=== PATIENT | female | born 1975 | race Caucasian/White ===

== ENCOUNTER 2022-06-13 13:49 | Emergency (ER) | payer OTHER, SELFPAY | END 2022-06-13 15:42 | disposition left against medical advice (07) | PROVIDERS: Emergency Provider Emergency Medicine | DX: H53.9 Unspecified visual disturbance (principal) ==

== ENCOUNTER 2022-07-04 20:31 | Emergency (ER) | payer OTHER, SELFPAY ==
[2022-07-04 20:38] VITALS: BP 166/112; PULSE 120; RESP 20; TEMP 36.5; O2SAT 96; BMI 29.7
--- NOTE | 2022-07-04 21:04 | ED_ITS ---
HPI - Psych General Chief Complaint: ETOH/Substance Use Stated Complaint: crisis Time Seen by Provider: 07/04/22 20:52 Source: patient, EMS and police Mode of arrival: EMS Limitations: other ( intoxicated) History of Present Illness HPI Narrative: patient comes to the ED via ambulance on a Section 12 that was started by police department. According to EMS and PD, patient sent at text message to her cousin making suicidal statements. Patient's cousin stated that patient wants to overdose on her prescription of valsartan. Patient is intoxicated, grieving the of her father who last week. Patient is unable to give much history, patient is intoxicated, a bit combative, wanting to leave and not give any further history. Related Data Home Medications Medication Instructions Recorded Confirmed sertraline 50 mg tablet 1 tab PO DAILY 07/04/22 07/04/22 valsartan 80 mg tablet 1 tab PO DAILY 07/04/22 07/04/22 Allergies Allergy/AdvReac Type Severity Reaction Status Date / Time amoxicillin AdvReac Hives Verified 07/04/22 20:38 Review of Systems Review of Systems: Yes Unobtainable due to mental condition (intoxicated ) REPLACED BY [facility] Past Medical History Medical History (Updated 07/04/22 @ 21:14 by Kayley Nelson MD) Alcohol abuse Depression Hypertension Social History Social History Advance Directives: No Advance Directives Information Provided: No Physical Exam Vital Signs: Vital Signs: Last Vital Signs Temp 97.7 F 07/04/22 20:38 Pulse 108 H 07/04/22 22:40 Resp 16 07/04/22 23:10 BP 102/55 L 07/04/22 22:40 Pulse Ox 92 07/04/22 22:40 O2 Del Method 07/04/22 22:40 BMI result Body Mass Index 29.7 Const: Other: Appearance: Alert. Intoxicated, not answering questions straight Eyes: Pupils equal, round and reactive to light. ENT: Pharynx normal. Neck: Normal inspection. Neck supple. No lymph nodes noted. No crepitus CVS: Normal heart rate and rhythm. Pulses normal. Normal S1 and S2 Respiratory: No respiratory distress. Breath sounds normal. No Wheezing. No rales Abdomen: Soft and nontender. No rigidity. No distention. Skin: Skin warm and dry. Normal skin color. Normal skin turgor. Extremities: No lower extremity edema. No Lacerations. No Rash Neuro: Oriented X 3. No motor deficit. No sensory deficit. Moving all extremities. No slurred speech. CN 2 through 12 grossly intact Psych: Anxious, a bit combative, redirectable so far Course Course Course Narrative: Patient's is on a Section 12 that was started by police department Patient is intoxicated. All of the labs are pending. [facility] consult pending. Physician observation started at 21:00 21:58 I was informed by the patient's nurse that patient is being combative, trying to fight other patients in the Behavioral Health pod. Patient already received p.o. Benadryl and p.o. Ativan. Patient had to be given 20 mg of IM Geodon and 5 of Haldol. Patient is in physical restraints. 06:50, patient slept the whole night. 5 minutes after the IM medication was given to the patient, the physical restraints were removed. Patient remains on a Section 12, behavioral health network consult pending. MDM - Psych Lab Data Labs: Lab Results 07/04/22 07/04/22 07/04/22 Range/Units 20:51 21:14 21:14 Urine Color Yellow Urine Appearance Clear Urine pH 6.0 (5.0-9.0) Ur Specific [place] 1.010 (1.005-1.025) Urine Protein 30 (1+) H (Neg-Trace) mg/dL Urine Glucose (UA) Negative (Negative) mg/dL Urine Ketones Negative (Negative) mg/dL Urine Blood Small (1+) H (Negative) Urine Nitrite Negative (Negative) Ur Leukocyte Esterase Negative (Negative) Urine RBC 0-2 (0-2) /HPF Urine WBC 0-5 (0-5) /HPF Ur Squamous Epith Cells 0-2 (0-2) /HPF Urine Bacteria None Seen (None Seen) Hyaline Casts 3-5 (0-2) /LPF Urine Opiates Screen Not Detected (Not Detect) Urine Fentanyl Screen Not Detected (Not Detect) Ur Barbiturates Screen Not Detected (Not Detect) Ur Phencyclidine Scrn Not Detected (Not Detect) Ur Amphetamines Screen Not Detected (Not Detect) U Benzodiazepines Scrn Not Detected (Not Detect) Urine Cocaine Screen Not Detected (Not Detect) U Marijuana (THC) Screen Not Detected (Not Detect) COVID-19 (MAIKOL) Negative (Negative) COVID-19 Clin Com See Note Discharge Plan Discharge Clinical Impression: Alcoholic intoxication, Suicide ideation Patient Disposition: Still a Patient Prescriptions: No Action valsartan 80 mg tablet 1 tab PO DAILY sertraline 50 mg tablet 1 tab PO DAILY
[2022-07-04] MEDS: Nicotine Polacrilex 2 MG GUM BUCCAL (21:10)
[2022-07-04 21:11] LABS: COVID-19 Test Negative (Negative)
[2022-07-04 21:24] LABS: Appearance Urine Clear; Color Urine Yellow; Glucose Urine UA Negative (Negative); Leukocyte Esterase Urine Negative (Negative); Nitrite Urine Negative (Negative); Urine Blood Small (1+) (Negative); Urine Ketones Negative (Negative); Urine Protein 30 (1+) mg/dL (Neg-Trace)
[2022-07-04] MEDS: LORazepam 1 MG TABLET 2 MG PO (21:24)
[2022-07-04] MEDS: diphenhydrAMINE HCL 25 MG TABLET 50 MG PO (21:24)
[2022-07-04 21:34] LABS: Bacteria Urine None Seen (None Seen); RBC Urine 0-2 /HPF (0-2); Squamous Epithelial Cell Urine 0-2 /HPF (0-2); WBC Urine 0-5 /HPF (0-5)
[2022-07-04 21:36] LABS: Amphetamine Screen Urine Not Detected (Not Detect); Barbiturates, Urine Not Detected (Not Detect); Benzodiazepines Screen Urine Not Detected (Not Detect); Cannabinoid Screen Urine Not Detected (Not Detect); Cocaine Screen Urine Not Detected (Not Detect); Fentanyl, urine Not Detected (Not Detect); Opiate Screen Urine Not Detected (Not Detect); Phencyclidine Screen Urine Not Detected (Not Detect)
[2022-07-04 22:10] VITALS: RESP 18
[2022-07-04] MEDS: Ziprasidone Mesylate 20 MG VIAL IM (22:10)
[2022-07-04] MEDS: Haloperidol Lactate 5 MG/ML VIAL IM (22:10)
[2022-07-04 22:25] VITALS: RESP 17
[2022-07-04 22:40] VITALS: BP 102/55; PULSE 108; RESP 18; O2SAT 92
[2022-07-04 22:55] VITALS: RESP 16
--- NOTE | 2022-07-04 23:02 | PC.NURSE ---
Patient extremely agitated/constantly demanding discharge/unable redirect/became loud and disruptive when asked to calm patien combative/provider notified/saw the patient/ordered both chemical and physical restraint, patient received Geodon 20 mg IM and Haldol 5 mg Im at 2209 with positive effect, physical restraint discontinued at 2254, 1:1 discontinued @ 2309, patient currently in bed appears sleeping, will continue to monitor
[2022-07-04 23:10] VITALS: RESP 16
--- NOTE | 2022-07-05 10:26 | PC.NURSE ---
patient calm and cooperative this am. eval by care team awaiting dispo.
--- NOTE | 2022-07-05 10:31 | MHC.CARE ---
CARE team met with pt to follow-up after she presented to the ED making suicidal statements while intoxicated. Pt reported SI with intent and plan to take prescription pills to overdose. Pt was triggered by the recent of her father; this caused her to drink a few shots and make suicidal statements. Pt presented as guarded and irritable. Pt denies current SI/HI/AVH. Pt has no prior psychiatric admissions. CARE team contacted [facility] and they have never conducted an assessment on Xenia. CARE team international sourcing manager spoke with Xenia's cousin Dang ([phone]) to obtain collateral information. Dang reported that Xenia sent her a text stating she is going to ingest prescription pills to intentionally overdose. This is not Xenia's first time making suicidal statements to Dang. Dang reported to that Xenia has a chronic drinking issue and this has caused Xenia to burn all bridges with her family and friends. It was reported that Xenia does not have a support system, but Dang will be there for her if needed. Xenia's child was born with FAS and has lost custody of her children due to her alcohol use. Dang reported that Xenia has been to rehab in the past (approx. 4-5 years ago).
--- NOTE | 2022-07-05 10:50 | PC.NURSE ---
pt not willing to speak with comp care. will defer dc plans to care team.
--- NOTE | 2022-07-05 11:04 | MHC.RECOVRN ---
Attempted to meet with pt to discuss alcohol use. Pt states Nope, I'm all set, I just need to leave. I have to work tomorrow. Pt declines to engage in any conversation with t/w. CARE Team and RN aware.
--- NOTE | 2022-07-05 11:11 | MHC.CARE ---
Plan for Pt to be discharged home. CAER Team reviewed case wit KELLEN Thomson. Pt will be referred to [facility] for therapy to address her grief. Pt was provided [facility] information. Recovery Team met with Pt to provide substance use support. CARE Team placed Pt on alert with [facility].
--- NOTE | 2022-07-05 11:13 | MHC.CARE ---
After Pt was discharged from the ED CARE Team received a phone call from Pts mother stating that Pt has no psych history and does not feel Pt should be held in the emergency department and advocating for Pt to discharge and she will follow up with Pt when she gets home.
== END 2022-07-05 10:59 | disposition home or self-care (01) ==
PROVIDERS: Emergency Provider Emergency Medicine
DX: F10.129 Alcohol abuse with intoxication, unspecified (principal); R45.851 Suicidal ideations; Y90.9 Presence of alcohol in blood, level not specified; Z20.822 Contact with and (suspected) exposure to COVID-19; Z79.899 Other long term (current) drug therapy
CPT/HCPCS: 80307; 81001; 87635; 96372; 99284; J3486; Q0163

== ENCOUNTER 2022-12-03 17:45 | Emergency (ER) | payer OTHER, SELFPAY ==
[2022-12-03 18:08] VITALS: BP 164/104; PULSE 92; RESP 18; TEMP 37; O2SAT 95; BMI 31.3
[2022-12-03 18:38] LABS: Amphetamine Screen Urine Not Detected (Not Detect); Barbiturates, Urine Not Detected (Not Detect); Benzodiazepines Screen Urine Not Detected (Not Detect); Cannabinoid Screen Urine POSITIVE (Not Detect); Cocaine Screen Urine Not Detected (Not Detect); Fentanyl, urine Not Detected (Not Detect); Opiate Screen Urine Not Detected (Not Detect); Phencyclidine Screen Urine Not Detected (Not Detect)
[2022-12-03 18:42] VITALS: RESP 18
[2022-12-03 18:42] LABS: COVID-19 Test Negative (Negative); IDNOW Serial# 16C4AD1C
[2022-12-03 18:53] VITALS: BP 172/92; PULSE 92; RESP 16; O2SAT 98
[2022-12-03 18:58] LABS: UPreg QC Valid YES; Urine Pregnancy NEGATIVE (NEGATIVE)
[2022-12-03 19:23] LABS: Basophils Absolute Auto 0.1 X10*3/uL (0.0-0.2); Basophils Percent Auto 0.7 % (0-2); Eosinophils Absolute Auto 0.1 X10*3/uL (0.0-0.4); Eosinophils Percent Auto 0.7 % (0-4); Hematocrit 33.4 % (37.0-47.0); Hemoglobin 10.4 g/dl (12.0-16.0); Imm Gran Abs Auto 0.01 X10*3/uL (0.00-0.03); Imm Gran Pct Auto 0.1 % (0.0-0.4); Lymphocytes Absolute Auto 1.5 X10*3/uL (1.2-4.9); Lymphocytes Percent Auto 19.8 % (20-40); MANUAL DIFF FLAG NO; Mean Corpuscular HGB Conc 31.1 g/dl (31.0-35.0); Mean Corpuscular Hemoglobin 21.9 pg (27.0-33.0); Mean Corpuscular Volume 70.5 fL (80.0-98.0); Mean Platelet Volume 7.8 fL (9.4-12.3); Monocytes Absolute Auto 0.5 X10*3/uL (0.1-1.2); Monocytes Percent Auto 6.1 % (2-11); Neutrophils Absolute Auto 5.6 x10*3/uL (2.0-8.3); Neutrophils Percent Auto 72.6 % (45-73); Platelet Count 447 X10*3/uL (160-400); Red Blood Count 4.74 X10*6/uL (4.20-5.50); Red Cell Distribution Width 17.2 % (11.0-16.0); White Blood Count 7.7 X10*3/uL (4.8-10.8)
[2022-12-03 19:37] LABS: Alanine Aminotransferase 12 U/L (0-31); Alkaline Phosphatase 71 U/L (39-117); Anion Gap 15 (12-20); Aspartate Amino Transferase 16 U/L (5-31); Bilirubin Total 0.3 mg/dL (0.0-1.0); Blood Urea Nitrogen 10 mg/dL (9-16); Calcium 8.6 mg/dL (8.4-10.2); Carbon Dioxide 20 mmol/L (22-29); Chloride 107 mmol/L (96-108); Creatinine Clr Calc Pharmacy 131.8; Estimated Glomerular Filt Rate > 60; Glucose Random 90 mg/dL (60-115); Potassium 4.1 mmol/L (3.3-5.1); Sodium 138 mmol/L (135-145); Total Protein 6.6 g/dL (6.5-8.0)
[2022-12-03] MEDS: Valsartan 80 MG TABLET PO (19:58)
[2022-12-03] MEDS: LORazepam 1 MG TABLET 2 MG PO (21:47)
--- NOTE | 2022-12-03 23:23 | ED_ITS ---
HPI - Psych General Chief Complaint: Psychiatric Symptoms Stated Complaint: Crisis Time Seen by Provider: 12/03/22 17:53 Source: patient Mode of arrival: ambulatory Limitations: no limitations History of Present Illness HPI Narrative: Patient comes to the ED complaining of depression. Patient states that she is having a difficult time with depression. Patient's father 5 months ago. Patient denies suicidal or homicidal ideation. Patient states that she takes sertraline daily, but sometimes forgets. Related Data Home Medications Medication Instructions Recorded Confirmed sertraline 50 mg tablet 1 tab PO DAILY 07/04/22 12/03/22 valsartan 80 mg tablet 1 tab PO DAILY 07/04/22 12/03/22 Allergies Allergy/AdvReac Type Severity Reaction Status Date / Time amoxicillin AdvReac Hives Verified 07/04/22 20:38 Review of Systems Review of Systems: Constitutional : No Weight loss, No Fever, No Chills, No Night Sweats, No Fatigue, No Malaise ENT/Mouth : No Hearing loss, No Ear Pain, No Nasal Congestion, No Sinus Pain, No Hoarseness, No sore throat, No Rhinorrhea, No Swallowing Difficulty Eyes: No Eye Pain, No Swelling, No Redness, No Foreign Body, No Discharge, No Vision Changes Cardiovascular : No Chest Pain, No SOB, No Dyspnea on Exertion, No Orthopnea, No Edema, No Palpitations Respiratory : No Cough, No Sputum, No Wheezing, No Smoke Exposure, No Dyspnea Gastrointestinal : No Nausea, No Vomiting, No Diarrhea, No Constipation, No abdominal Pain, No Hematochezia, No Melena Genitourinary : no irregular bleeding, No Dysuria, No Urinary Frequency, No Hematuria, No Urinary Incontinence, No Urgency, No Flank Pain, No Urinary Flow Changes, No Hesitancy Musculoskeletal : No joint pain, No Myalgias, No Joint Swelling Skin : No Skin Lesions, No rash Neuro : No Weakness, No Numbness, No Paresthesias, No Loss of Consciousness, No Dizziness, No Headache Psych : Complaining of anxiety and depression, no SI or HI Heme/Lymph: No Bruising, No Bleeding,No Lymphadenopathy Endocrine : No Polyuria, No Polydipsia, No Temperature Intolerance PMFSH Past Medical History Medical History Alcohol abuse Depression Hypertension Social History Social History Alcohol intake: unknown Smoked in Last 30 Days: Yes Use of substances other than those prescribed or required for medical reasons: No Advance Directives: No Advance Directives Information Provided: No Patient : No Physical Exam Vital Signs: Vital Signs: Last Vital Signs Temp 98.6 F 12/03/22 18:08 Pulse 92 12/03/22 18:53 Resp 16 12/03/22 18:53 BP 172/92 H 12/03/22 18:53 Pulse Ox 98 12/03/22 18:53 O2 Del Method 12/03/22 18:53 BMI result Body Mass Index 31.3 Const: Other: Appearance: Alert. Oriented X3. No acute distress. Eyes: Pupils equal, round and reactive to light. ENT: Pharynx normal. Neck: Normal inspection. Neck supple. No lymph nodes noted. No crepitus CVS: Normal heart rate and rhythm. Pulses normal. Normal S1 and S2 Respiratory: No respiratory distress. Breath sounds normal. No Wheezing. No rales Abdomen: Soft and nontender. No rigidity. No distention. Skin: Skin warm and dry. Normal skin color. Normal skin turgor. Extremities: No lower extremity edema. No Lacerations. No Rash Neuro: Oriented X 3. No motor deficit. No sensory deficit. Moving all extremities. No slurred speech. CN 2 through 12 grossly intact Psych: calm, cooperative, normal affect Course Course Course Narrative: -care team consult pending -patient's labs are unremarkable, U tox positive for THC Medications Administered Generic Name Dose Route Start Last Admin Trade Name Freq PRN Reason Stop Dose Admin Valsartan 80 mg 12/04/22 09:00 12/03/22 19:58 Valsartan 80 Mg Tablet PO 80 mg DAILY MONISHA Administration Protocol Discontinued Medications Generic Name Dose Route Start Last Admin Trade Name Freq PRN Reason Stop Dose Admin Lorazepam 2 mg 12/03/22 21:45 12/03/22 21:47 Lorazepam 1 Mg Tablet PO 12/03/22 21:46 2 mg ONCE ONE Administration Medical Decision Making Medical Decision Making MDM Narrative: -care plan consult pending -physician observation started at 23:36 Differential Diagnosis Differential Diagnoses: The differential diagnosis associated with the presentation includes (Anxiety, depression, substance abuse) Admission/Observation Consideration of admission/observation: Escalation of care including admission/observation considered (Patient is under physician observation, waiting to be seen by the care team. Patient is not SI HI, not on a Section 12) Lab Data MDM Lab Attestation statement: I reviewed the patient's lab results. 12/03/22 19:18 12/03/22 19:18 Labs: Lab Results 12/03/22 12/03/22 12/03/22 Range/Units 18:16 18:18 18:19 WBC (4.8-10.8) X10*3/uL RBC (4.20-5.50) X10*6/uL Hgb (12.0-16.0) g/dl Hct (37.0-47.0) % MCV (80.0-98.0) fL MCH (27.0-33.0) pg MCHC (31.0-35.0) g/dl RDW (11.0-16.0) % Plt Count (160-400) X10*3/uL MPV (9.4-12.3) fL Immature Gran % (Auto) (0.0-0.4) % Neut % (Auto) (45-73) % Lymph % (Auto) (20-40) % Amelia % (Auto) (2-11) % Eos % (Auto) (0-4) % Baso % (Auto) (0-2) % Lymph # (Auto) (1.2-4.9) X10*3/uL Amelia # (Auto) (0.1-1.2) X10*3/uL Eos # (Auto) (0.0-0.4) X10*3/uL Baso # (Auto) (0.0-0.2) X10*3/uL Abs Immat Gran (auto) (0.00-0.03) X10*3/uL Absolute Neuts (auto) (2.0-8.3) x10*3/uL Absolute Nucleated RBC (0.0-0.012) X10*3/uL Nucleated RBC % (auto) (0.0-0.2) /100WBC Sodium (135-145) mmol/L Potassium (3.3-5.1) mmol/L Chloride (96-108) mmol/L Carbon Dioxide (22-29) mmol/L Anion Gap (12-20) BUN (9-16) mg/dL Creatinine (0.5-1.4) mg/dL Estim Creat Clear Calc Estimated GFR Random Glucose (60-115) mg/dL Calcium (8.4-10.2) mg/dL Total Bilirubin (0.0-1.0) mg/dL AST (5-31) U/L ALT (0-31) U/L Alkaline Phosphatase (39-117) U/L Total Protein (6.5-8.0) g/dL Albumin (3.5-5.0) g/dL Urine Test NEGATIVE (NEGATIVE) Urine Opiates Screen Not Detected (Not Detect) Urine Fentanyl Screen Not Detected (Not Detect) Ur Barbiturates Screen Not Detected (Not Detect) Ur Phencyclidine Scrn Not Detected (Not Detect) Ur Amphetamines Screen Not Detected (Not Detect) U Benzodiazepines Scrn Not Detected (Not Detect) Urine Cocaine Screen Not Detected (Not Detect) U Marijuana (THC) Screen POSITIVE H (Not Detect) COVID-19 (MAIKOL) Negative (Negative) COVID-19 Clin Com See Note 12/03/22 12/03/22 Range/Units 19:18 19:18 WBC 7.7 (4.8-10.8) X10*3/uL RBC 4.74 (4.20-5.50) X10*6/uL Hgb 10.4 L (12.0-16.0) g/dl Hct 33.4 L (37.0-47.0) % MCV 70.5 L (80.0-98.0) fL MCH 21.9 L (27.0-33.0) pg MCHC 31.1 (31.0-35.0) g/dl RDW 17.2 H (11.0-16.0) % Plt Count 447 H (160-400) X10*3/uL MPV 7.8 L (9.4-12.3) fL Immature Gran % (Auto) 0.1 (0.0-0.4) % Neut % (Auto) 72.6 (45-73) % Lymph % (Auto) 19.8 L (20-40) % Amelia % (Auto) 6.1 (2-11) % Eos % (Auto) 0.7 (0-4) % Baso % (Auto) 0.7 (0-2) % Lymph # (Auto) 1.5 (1.2-4.9) X10*3/uL Amelia # (Auto) 0.5 (0.1-1.2) X10*3/uL Eos # (Auto) 0.1 (0.0-0.4) X10*3/uL Baso # (Auto) 0.1 (0.0-0.2) X10*3/uL Abs Immat Gran (auto) 0.01 (0.00-0.03) X10*3/uL Absolute Neuts (auto) 5.6 (2.0-8.3) x10*3/uL Absolute Nucleated RBC 0.000 (0.0-0.012) X10*3/uL Nucleated RBC % (auto) 0.0 (0.0-0.2) /100WBC Sodium 138 (135-145) mmol/L Potassium 4.1 (3.3-5.1) mmol/L Chloride 107 (96-108) mmol/L Carbon Dioxide 20 L (22-29) mmol/L Anion Gap 15 (12-20) BUN 10 (9-16) mg/dL Creatinine 0.61 (0.5-1.4) mg/dL Estim Creat Clear Calc 131.8 Estimated GFR > 60 Random Glucose 90 (60-115) mg/dL Calcium 8.6 (8.4-10.2) mg/dL Total Bilirubin 0.3 (0.0-1.0) mg/dL AST 16 (5-31) U/L ALT 12 (0-31) U/L Alkaline Phosphatase 71 (39-117) U/L Total Protein 6.6 (6.5-8.0) g/dL Albumin 4.0 (3.5-5.0) g/dL Urine Test (NEGATIVE) Urine Opiates Screen (Not Detect) Urine Fentanyl Screen (Not Detect) Ur Barbiturates Screen (Not Detect) Ur Phencyclidine Scrn (Not Detect) Ur Amphetamines Screen (Not Detect) U Benzodiazepines Scrn (Not Detect) Urine Cocaine Screen (Not Detect) U Marijuana (THC) Screen (Not Detect) COVID-19 (MAIKOL) (Negative) COVID-19 Clin Com Discharge Plan Discharge Clinical Impression: Anxiety with depression Patient Disposition: Still a Patient Prescriptions: No Action valsartan 80 mg tablet 1 tab PO DAILY sertraline 50 mg tablet 1 tab PO DAILY Interventions: [place]-Suicide Risk Severity Scale Last Done: 12/03/22 18:42
--- NOTE | 2022-12-04 05:34 | PC.NURSE ---
Patient slept through the night, no distress observed/reported, behavior non concerning, medication compliant, Ativan 2 mg PO administered at 2147 with + effect, VSS, care team consult ordered/pending evaluation in the morning, will continue to monitor.
[2022-12-04 06:24] VITALS: BP 126/76; PULSE 64; RESP 15; TEMP 36.4; O2SAT 97
[2022-12-04] MEDS: Sertraline HCL 50 MG TABLET PO (08:57)
[2022-12-04] MEDS: Valsartan 80 MG TABLET PO (10:23)
[2022-12-04 10:27] VITALS: BP 135/91; PULSE 67; RESP 16; TEMP 36.9; O2SAT 96
[2022-12-04 19:48] VITALS: BP 147/82; PULSE 63; RESP 20; TEMP 36.4; O2SAT 95
[2022-12-04] MEDS: LORazepam 1 MG TABLET 2 MG PO (20:20)
[2022-12-05 03:30] VITALS: BP 139/95; PULSE 80; RESP 16; TEMP 36.4; O2SAT 98
--- NOTE | 2022-12-05 05:24 | PC.NURSE ---
this rn assumed care of pt at 0500. pt resting on stretcher. pt a+o x 4. pt reports no new needs at thistime
[2022-12-05 07:11] VITALS: BP 127/88; PULSE 53; RESP 16; TEMP 36.9; O2SAT 95
[2022-12-05] MEDS: Valsartan 80 MG TABLET PO (09:04)
[2022-12-05] MEDS: Sertraline HCL 50 MG TABLET PO (09:05)
--- NOTE | 2022-12-05 09:05 | PC.NURSE ---
patient a&ox3, vitals stable, pt medicated per order, care team spoke with patient this morning, call gutierrez within reach, will continue to monitor
== END 2022-12-05 13:07 | disposition home or self-care (01) ==
PROVIDERS: Emergency Provider Emergency Medicine
DX: F33.1 Major depressive disorder, recurrent, moderate (principal); F41.1 Generalized anxiety disorder; F43.0 Acute stress reaction; Z20.822 Contact with and (suspected) exposure to COVID-19; Z20.828 Contact with and (suspected) exposure to other viral communicable diseases; Z79.899 Other long term (current) drug therapy
CPT/HCPCS: 36415; 80053; 80307; 81025; 85025; 87635; 99285; S9485

== ENCOUNTER 2023-01-27 11:15 | Outpatient (RCR) | payer OTHER, SELFPAY ==
--- NOTE | 2023-01-17 09:40 | PC.NURSE ---
Xenia did not show up to the program this morning. I called Xenia and left her a message to call me back. Awaiting phone call.
--- NOTE | 2023-01-17 10:16 | PC.NURSE ---
Xenia called and left a message stating she has been crying and is unable to get out of bed. I called Xenia back. She reports decreased sleep, sleeping 3 hours last night and not wanting to get out of bed this morning. She sounded as though she just woke up. I asked Xenia if she was having any thoughts to harm or kill herself, she denied. Denied any history of SA or hospitalizations. She reports she is safe. She is planning on coming to the program tomorrow. Xenia stated she did not want to talk anymore and hung up the phone. [facility] staff is aware.
--- NOTE | 2023-01-18 12:29 | PC.ADMIT ---
Patient is a 48 year old female who was referred to PHP by [facility] d/t increased depression and anxiety. Patient's father 5 months ago and patient is struggling with grief. Per assessment patient is also in the mist of custody rangel and visitation rights in regards to her 10 year old son. Patient reports having difficulty getting out of bed. Drinking ETOH to cope using 1 pint of Vodka 2 times a week. Attending AA a few days a week. Patient took a leave of absence from work to be at the program and work on her mental health. Patient's goal is to stabilize her mental health and be able to go back to work. Patient is alert and oriented x4. Calm and cooperative. Presented with depressed mood, somewhat irritable affect at times. Medications reconciled with patient and patient's pharmacy. Reports taking medications as prescribed. At times she reports missing Naltrexone. Patient aware to call her PCP regarding refills of Valsartan started in the ER. Stated she has a few tabs left. Patient denied SI or thoughts to harm herself. Patient given a copy of her safety plan if needed and I reviewed her safety plan with her.
[2023-01-18 12:34] VITALS: BP 110/68; PULSE 80; TEMP 36.7
[2023-01-18 12:35] VITALS: BMI 30.2
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
--- NOTE | 2023-01-20 09:21 | PC.NURSE ---
Patient did not show up to the program this morning. Called Xenia and left her a message to call me back.
--- NOTE | 2023-01-20 09:27 | PC.NURSE ---
Xenia called me back stating that she is unable to get out of bed today as she stated her mother told her her cousin of an overdose via suicide. Patient tearful at times. I asked her if she was safe or had any thoughts to harm or kill herself and she stated she did not. I suggested she go see her mother however she stated she wants to stay in bed and is going to call her mother to see if she can come over to her home. Patient stated she plans on coming to the program tomorrow. [facility] staff is aware.
--- NOTE | 2023-01-21 07:51 | HO.PHP ---
case opened and reviewed in treatment team
--- NOTE | 2023-01-21 09:50 | PC.NURSE ---
Xenia did not show up to the program this morning. I called Xenia and she stated she can not get out of bed. She is grieving the loss of her cousin. She denied SI or thoughts to harm herself. Plans on coming to the program on Tuesday. She reports she has been staying sober. We talked about AA meetings and she stated she has been doing telephone meetings with [facility] . Talked about doing some meetings over the weekend. I explained to her the importance of attending the program consistently. Patient reports she understands and stated she will be her on Tuesday. [facility] paperwork has been completed. [facility] staff is aware.
--- NOTE | 2023-01-26 14:58 | HO.PHP ---
The client called this morning and spoke with Tessie. She states that she hasd been sleeping and has not been able to sleep. She will be in tomorrow.
--- NOTE | 2023-01-27 13:18 | HO.PHPPROGNO ---
Subjective Subjective Date of Service: 01/27/23 Reason For Visit: depression,anxiety Medical Problems Affecting Mental Status: No Interim History: Describes mood as ?a little better ?.. States not as anxious. Continues in grieving process of multiple family members passing, depressed. Drink Tuesday night, states ?much more than intended ?. No SI, no safety concerns. Medication Compliance: Intermittent Side effects from medications: No Attending Groups: Yes Review of Systems Acute medical concerns: No Medical Review of Systems: unchanged Review of Systems Review of Systems Yes all other systems are reviewed and are negative Constitutional: Reports no additional constitutional complaints Mental Status Exam Mental Status Exam Narrative: Well-developed, well-nourished female, NAD. Patient Appearance: Appropriate Patient Orientation: Person, Place, Time and Situation Level of Consciousness: Appropriate Patient Behavior: Appropriate, Cooperative, Anxious and Good Eye Contact Mood Description: Depressed and Anxious Affect Description: Depressed and Anxious Patient Cognition Impaired: No Ability to Follow Directions: Good Speech Pattern: Clear Memory Description: Intact Hallucinations: None Delusions: Not Present Thought Process: Intact Thought Content: positive for Intact Depressive Symptoms: Increased Anxiety, Difficulty Sleeping, Loss of Int. in Activity, Feelings of Worthlessness, Feelings of Guilt, Unhappiness and Increased Fatigue Judgement: Fair Diagnostics Vital Signs (24Hr): BMI result Body Mass Index 30.2 Assessment & Plan Assessment & Plan (1) Depression, major, severe recurrence: Status: Acute Code(s): F33.2 - Major depressive disorder, recurrent severe without psychotic features Assessment and Plan: Describes mood as ?a little better ?.. States not as anxious. Continues in grieving process of multiple family members passing. Continues depressed. Discussed current medications. Patient has not started taking bupropion. No history seizures. Was encouraged to begin taking it daily. Patient was confused regarding sertraline dose. Reviewed doses of each medications, whether scheduled or as needed. Is taking hydroxyzine, finding it somewhat effective. Drink Tuesday night, states ?much more than intended ?. No SI, no safety concerns. Discussed importance of attending program daily, taking medications as prescribed, abstaining from alcohol while in program. (2) Generalized anxiety disorder: Status: Acute Code(s): F41.1 - Generalized anxiety disorder (3) Alcohol use disorder: Status: Acute Code(s): F10.90 - Alcohol use, unspecified, uncomplicated Assessment and Plan: Minimizes alcohol use. Relates drinking to ineffective coping, grief. Has not been taking naltrexone daily. Discussed medication, patient states she will start taking it daily. (4) Skin-picking disorder: Status: Acute Code(s): F42.4 - Excoriation (skin-picking) disorder Plan 1. Continue with current [facility] plan of care. 2. Continue with current medications as prescribed. 3. Harm/risk reduction discussion. 4. Follow-up as per protocol. Patient educated on: diagnosis, medication risk/benefits, substance abuse and therapeutic strategies Informed Consent: understands Reason for contiued partial hosp. stay Substantial Risk for: inability to function, rapid decompensation and med/psych decompensation Certification I certify that partial hospital treatment is medically necessary due to the symptoms and problems resulting from the patient's mental illness and the failure to treat the patient at the partial hospital level of care would likely result in the patient requiring inpatient psychiatric care which could not be prevented at a less intensive level of care. Total time managing care of this patient today 20____ minutes. Discharge Plan Discharge Attending provider: Luis Morin Medications: New bupropion HCl [Wellbutrin SR] 100 mg tablet sustained-release 12 hr 100 mg PO DAILY Qty: 20 1RF Changed hydroxyzine pamoate 25 mg capsule 25 mg PO BID PRN (Reason: anxiety) Qty: 30 0RF No Action valsartan 80 mg tablet 1 tab PO DAILY sertraline 50 mg tablet 100 mg PO DAILY naltrexone 50 mg Tablet 50 mg PO DAILY quetiapine 100 mg Tablet 100 mg PO BEDTIME
--- NOTE | 2023-01-27 15:29 | HO.PHP ---
Case reviewed and opened in treatment team
--- NOTE | 2023-01-28 10:34 | PM.EVENT ---
Event Note Date of Service: 01/28/23 Event Note: Patient called at start of day, stating that she overslept, will not be attending. Reported that she had a difficult night. Patient has been struggling with abstinence from alcohol. This poem writer discussed possibility of higher level of care, detox, treatment program. She was in agreement that she may need this. Patient was advised that employment programs analyst would be calling her this morning to discuss options. Patient reports she is safe, no thoughts of harming self or others in any way. Time Spent With Patient Time: Total time managing care of this patient today ____ minutes.
--- NOTE | 2023-01-31 10:52 | HO.PHP ---
I called and left a message for Xenia to call me back.
--- NOTE | 2023-02-02 14:13 | PC.NURSE ---
Karely Marlow to get in contact with patient regarding referral to [facility].
== END 2023-01-27 23:59 | disposition home or self-care (01) ==
LOC: HO.PHPA 11:15
PROVIDERS: Visit Provider Psychiatry & Neurology Psychiatry
DX: F33.2 Major depressive disorder, recurrent severe without psychotic features (principal); F41.1 Generalized anxiety disorder; F42.4 Excoriation (skin-picking) disorder; F10.90 Alcohol use, unspecified, uncomplicated; Z79.899 Other long term (current) drug therapy
CPT/HCPCS: 90791; 90853